=== PATIENT | female | born 1955 | race Caucasian/White ===

== ENCOUNTER → 2021-06-24 13:18 | Outpatient (CLI) | payer OTHER, SELFPAY ==
--- NOTE | ~2021-06-24 | MM_ITS ---
EXAMINATION: MM screening rayshawn BI w guillaume HISTORY: Screening TECHNIQUE: Craniocaudal and mediolateral oblique 3-D tomosynthesis images were obtained and synthetic 2-D images were generated. CAD analysis was submitted and interpreted. COMPARISON: Comparison to multiple prior studies sequentially, with oldest reviewed study dated 04/2014. BREAST PARENCHYMAL COMPOSITION: The breasts are almost entirely fatty. FINDINGS: There is no evidence of suspicious mass, calcification, or architectural distortion to sugg est malignancy in either breast. There has been no suspicious interval change. IMPRESSION: 1. No mammographic evidence of malignancy. 2. Recommend routine screening mammography in one year. BI-RADS Category 1: Negative Reviewed, dictated and finalized at location A.
== END ==
PROVIDERS: PCP Family Medicine; Visit Provider Obstetrics & Gynecology
DX: Z12.31 Encounter for screening mammogram for malignant neoplasm of breast (principal)
CPT/HCPCS: 77063; 77067

== ENCOUNTER 2021-08-26 01:52 | Day surgery (SDC) | payer OTHER, SELFPAY ==
[2021-08-11 14:06] VITALS: BMI 28.0
[2021-08-26 06:14] VITALS: BP 126/81; PULSE 75; RESP 20; TEMP 36.7; O2SAT 99; BMI 27.8
[2021-08-26] MEDS: LACTATED RINGERS 1,000 ML 150 ML IV CONT (06:27)
--- NOTE | 2021-08-26 07:13 | P.PNAN_ITS ---
Anes - Initial Pre Proc Eval Procedure: Operation Date: 08/26/21 07:30 Proposed Procedures p Screening Colonoscopy - Kirby Buitrago MD Date/Time: 08/26/21 07:13 Surgeon: Kirby Buitrago MD Pre Op Diagnosis: neoplasm screening, hx of colon polyps Patient Data Age: 66 Gender: F Height: 1.65 m Weight: 76 kg Last Vital Signs Temp 98.0 F 08/26/21 06:14 Pulse 75 08/26/21 06:14 Resp 20 08/26/21 06:14 BP 126/81 08/26/21 06:14 Pulse Ox 99 08/26/21 06:14 O2 Del Method Room Air 08/26/21 06:14 Allergies Allergy/AdvReac Type Severity Reaction Status Date / Time codeine Allergy Mild rash Verified 08/11/21 14:05 Home Medications Medication Instructions Recorded Confirmed Type No Home Medications 08/11/21 08/11/21 History Patient hx anesthesia problems: none Family hx anesthesia problems: none Results Review: All pre-operative results and documents have been reviewed as part of the pre- operative evaluation. PMF Social History Social History Living arrangements: with family Anes - Eval Final PreProcedure Day of Procedure 08/26/21 07:13 Patient weight: normal Heart: regular rate and rhythm Lungs: clear to auscultation Airway: Mallampati scale class II Neurological: alert and oriented Last oral intake: >/= 8 hours ASA classification: II Emergent: no Anesthetic plan: proceed Anesthesia type and monitoring: general GIVS and standard monitoring Results Review: All pre-operative results and documents have been reviewed as part of the pre- operative evaluation. Informed Consent: The patient's anesthetic plan and its attendant risks and benefits were discussed with the patient/family/POA. Questions were solicited and answers provided to the satisfaction of the patient/family/POA.
--- NOTE | 2021-08-26 07:24 | PM.IMHP ---
H&P: HPI History of Present Illness Date/Time: 08/26/21 07:24 Chief Complaint: Neoplasia screening Narrative: this is a 66-year-old white female patient who presents for screening colonoscopy. Patient reports that her current weight appetite and bowel movements are normal. She denies abdominal pain. Patient has had no bleeding. Family history is noncontributory. Patient reports previous colonoscopy 8 years ago revealed a benign colon polyp. Patient presents today for surveillance follow-up colonoscopy. Neoplasia screening colonoscopy to be performed today. Review of Systems Review of Systems: Review of systems noncontributory. [facility] Social History Social History Living arrangements: with family Meds Home Medications and Allergies Home Medications Medication Instructions Recorded Confirmed Type No Home Medications 08/11/21 08/11/21 History Allergies Allergy/AdvReac Type Severity Reaction Status Date / Time codeine Allergy Mild rash Verified 08/11/21 14:05 Vital Signs Vital Signs - 24 hr 08/26/21 06:14 Temperature 98.0 F Pulse Rate 75 Respiratory Rate 20 Blood Pressure 126/81 Pulse Oximetry 99 Oxygen Delivery Room Air Exam Narrative: Physical exam reveals patient to be alert. Vital signs stable. HEENT exam is unremarkable. Patient is anicteric. Lungs are clear to auscultation and percussion. Heart is without murmur or extra sounds. Abdominal exam bowel sounds are present soft nontender with no organomegaly. Digital external rectal exam is normal. Assessment and Plan Assessment and plan (1) History of colon polyps: Code(s): Z86.010 - Personal history of colonic polyps Status: Acute Assessment and Plan: Patient has a prior history of colon polyps. Plan is for surveillance colonoscopy now further recommendations will be given after endoscopy.
[2021-08-26 07:46] VITALS: BP 108/43; PULSE 67; RESP 17; O2SAT 99
[2021-08-26 07:56] VITALS: BP 110/68; PULSE 71; RESP 19; O2SAT 99
[2021-08-26 08:06] VITALS: BP 114/73; PULSE 61; RESP 19; O2SAT 100
== END 2021-08-26 08:14 | disposition home or self-care (01) ==
PROVIDERS: PCP Family Medicine; Visit Provider Internal Medicine Gastroenterology
PROC: 0DJD8ZZ Inspection of Lower Intestinal Tract, Via Natural or Artificial Opening Endoscopic (ICD-10-PCS; CPT 45378; principal; 2021-08-26 07:30)
DX: Z12.11 Encounter for screening for malignant neoplasm of colon (principal); Z86.010 Personal history of colon polyps; K64.8 Other hemorrhoids; K57.30 Diverticulosis of large intestine without perforation or abscess without bleeding
CPT/HCPCS: 45378; J2704; J7120

== ENCOUNTER → 2021-08-31 14:30 | Outpatient (CLI) | payer OTHER, SELFPAY ==
--- NOTE | ~2021-08-31 | DEXA_ITS ---
Bone Density Report Name: FRANCIS POLLOCK Age: 66 Sex: Female Ethnicity: White Date of : 1955 Indication: osteopenia; postmenopausal Referring Provider: DELPHINE, HUGO Price Study: Bone densitometry was performed. Exam Date: August 31, 2021 Accession number: [id number] Bone Density: Region BMD T-score Z-score Classification AP Spine (L1-L4) 0.916 -1.2 0.5 Osteopenia Femoral Neck (Left) 0.811 -0.3 1.1 Normal Total Hip (Left) 0.917 -0.2 1.0 Normal Femoral Neck (Right) 0.796 -0.5 1.0 Normal Total Hip (Right) 0.969 0.2 1.4 Normal Total Hip Mean 0.943 0.0 1.2 Normal World Health Organization criteria for BMD impression classify patients as: Normal (T-score at or above -1.0), Osteopenia (T-score between -1.0 and -2.5), or Osteoporosis (T-score at or below -2.5). 10-year Fracture Risk(1): Major Osteoporotic Fracture 7.0% Hip Fracture 0.3% Reported Risk Factors: [place] (), Neck BMD=0.796, BMI=28.8 (1) FRAX(R) Version 3.08. Fracture probability calculated for an untreated patient. Fracture probability may be lower if the patient has received treatment. Previous Exams: Region Exam Age BMD T-score BMD Change BMD Change Date g/cm2 vs Baseline vs Previous AP Spine(L1-L4) 08/31/2021 66 0.916 -1.2 -0.018 0.030* 12/10/2017 62 0.886 -1.5 -0.048* -0.017 02/13/2013 57 0.903 -1.3 -0.032* -0.032* 09/11/2008 53 0.935 -1.0 Total Hip(Left) 08/31/2021 66 0.917 -0.2 -0.072* -0.009 12/10/2017 62 0.926 -0.1 -0.063* -0.068* 02/13/2013 57 0.994 0.4 0.005 0.005 09/11/2008 53 0.989 0.4 Total Hip(Right) 08/31/2021 66 0.969 0.2 -0.066* 0.002 12/10/2017 62 0.966 0.2 -0.068* -0.046* 02/13/2013 57 1.012 0.6 -0.022 -0.022 09/11/2008 53 1.035 0.8 *Denotes significance at 95% confidence level, LSC for AP Spine = 0.022 g/cm2, LSC for Total Hip = 0.027 g/cm2 Clinical Information Provided by Patient: Has used the following medications: Vitamin D Patient maximum height was 65 Menopause Age: 51 No regular weight bearing exercise Drinks caffeinated beverages Onset of menses at age 14 Number of children 3 Impression: The patient has low bone mass, based on the Total Spine T-score. The patient has an estimated ten-year risk of hip fract
== END ==
PROVIDERS: PCP Family Medicine; Visit Provider Nurse Practitioner
DX: N95.1 Menopausal and female climacteric states (principal); M85.88 Other specified disorders of bone density and structure, other site
CPT/HCPCS: 77080